=== PATIENT | male | born 1955 | race Caucasian/White ===

== ENCOUNTER 2020-07-12 11:52 | Emergency (ER) | payer MEDICARE, MEDICAID ==
[~2020-07-12] VITALS: Ht 177.8 cm; Wt 79.5 kg
[2020-07-12] MEDS ORDERED: LORazepam 2 MG/ML, 1ML IVPush ONE ×2 (12:30→16:00)
[2020-07-12] MEDS ORDERED: SODIUM CHLORIDE FLUSH 10ML SYR IVF ONE (12:30)
[2020-07-12] MEDS ORDERED: THIAMINE 100 MG in SODIUM CHLORIDE 0.9% 50 ML IVPB ONE (12:30)
[2020-07-12] MEDS ORDERED: PLEASE ENTER ALLERGIES MC SCH (12:30)
[2020-07-12] MEDS ORDERED: PLEASE ENTER HEIGHT AND WEIGHT MC SCH (12:30)
[2020-07-12] MEDS ORDERED: SODIUM CHLORIDE 0.9% 1,000ML IVBOLUS ONE (12:30)
[2020-07-12 12:39] LABS: MEAN CORPUSCULAR HEMOGLOBIN 39.7 pg (27.5-34.5); MEAN CORPUSCULAR HGB CONC 34.2 g/dL (33.2-36.2); MEAN CORPUSCULAR VOLUME 116.2 fL (81-97); MEAN PLATELET VOLUME 6.8 fL (7.4-10.4); PLATELET COUNT 245 x10^3/uL (130-400); RED BLOOD COUNT 3.77 x10^6/uL (4.38-5.82); RED CELL DISTRIBUTION WIDTH 18.1 % (9.4-14.8)
[2020-07-12] MEDS ORDERED: LORazepam 2 MG/ML, 1ML ONE (12:43)
[2020-07-12 12:44] LABS: ALANINE AMINOTRANSFERASE 81 U/L (12-78); ALBUMIN 4.1 g/dL (3.4-5.0); ANION GAP 8 mmol/L (5-15); CALCIUM 11.6 mg/dL (8.5-10.1); CHLORIDE 103 mmol/L (98-107); CREATININE 1.27 mg/dL (0.7-1.3)
[2020-07-12 12:51] LABS: ALKALINE PHOSPHATASE 82 U/L (45-117); BILIRUBIN,TOTAL 1.8 mg/dL (0.2-1.0); TOTAL PROTEIN 7.6 g/dL (6.4-8.2)
[2020-07-12 12:58] LABS: BASOPHILS # (AUTO) 0.03 x10^3/uL (0-0.1); BASOPHILS % (AUTO) 0 % (0-1); EOSINOPHILS # (AUTO) 0.03 x10^3/uL (0-0.4); EOSINOPHILS % (AUTO) 0 % (1-7); LYMPHOCYTES # (AUTO) 1.14 x10^3/uL (1-3.4); LYMPHOCYTES % (AUTO) 12 % (22-44); MD MORPH REVIEW ONLY; MONOCYTES % (AUTO) 6 % (2-9); NEUTROPHILS # (AUTO) 7.62 x10^3/uL (1.8-6.8); NEUTROPHILS % (AUTO) 81 % (42-75)
[2020-07-12 13:03] LABS: ANISOCYTOSIS 1+
[2020-07-12 13:04] LABS: <PLATELET ESTIMATE> ADEQUATE; <PLT MORPHOLOGY> NORMAL PLT MORPH
[2020-07-12] MEDS ORDERED: THIAMINE 100 MG/ML, 2ML ONE (14:03)
[2020-07-12 15:18] VITALS: BP 167/89
[2020-07-12 15:27] LABS: MICROSCOPIC INDICATED
[2020-07-12] MEDS ORDERED: LORazepam 1MG TABLET ONE (16:05)
[2020-07-12] MEDS ORDERED: LORazepam 1MG TABLET PO ONE (16:30)
== END 2020-07-12 16:22 | disposition home or self-care (01) ==
LOC: ED 15:13
DX: F10.239 Alcohol dependence with withdrawal, unspecified (principal); J02.9 Acute pharyngitis, unspecified; R05 Cough; R00.0 Tachycardia, unspecified; R06.89 Other abnormalities of breathing; Y90.9 Presence of alcohol in blood, level not specified
CPT/HCPCS: 36415; 71045; 80053; 80307; 81001; 85025; 93005; 96365; 96366; 96375; 99285; J2060; J3411; J7030

== ENCOUNTER 2020-07-21 13:54 | Emergency (ER) | payer MEDICARE, MEDICAID ==
[~2020-07-21] VITALS: Ht 180.3 cm; Wt 81.8 kg
--- NOTE | 2020-07-21 14:13 | NUR ---
BIB EMS FROM HOME. PT STATES HE HAS BEEN HAVING HALLUCINATIONS BOTH VISUAL AND AUDIBLE ABOUT EVENTS THAT HE KNOWS ARE NOT HAPPENING. PT IS CALM AND COOPERATIVE. STATES THAT HE WAS A HEAVY DRINKER BUT HAS HAD NO ALCOHOL IN 25 DAYS. DENIES SI OR HI AT THIS TIME.
--- NOTE | 2020-07-21 14:28 | NUR ---
BREAK RN: PT WAS SEEN HERE AND LEFT AMA 07/14/2020 FROM FLOOR. WAS ADMITTED FOR ETOH WITHDRAWAL, PRESUMPTIVE PNA, SEPSIS AND ARF. PT NOW [facility]ING ON [facility] MONITORS APPLIED. VSS.
--- NOTE | 2020-07-21 14:56 | NUR ---
DR HSU AT BEDSIDE. PT ASSESSMENT, POC DISCUSSED AND QUESTIONS ANSWERED.
--- NOTE | 2020-07-21 15:13 | NUR ---
PT AMBULATED TO BATHROOM UPRIGHT STEADY GAIT. URINE SAMPLE PROVIDED AND SENT TO LAB. RTD TO ROOM W/O INCIDENT. VSS, CALL LIGHT W/I REACH
[2020-07-21 15:36] LABS: MICROSCOPIC NOT IND
[2020-07-21 15:37] LABS: MEAN CORPUSCULAR HEMOGLOBIN 38.8 pg (27.5-34.5); MEAN CORPUSCULAR HGB CONC 33.5 g/dL (33.2-36.2); MEAN CORPUSCULAR VOLUME 115.7 fL (81-97); MEAN PLATELET VOLUME 7.8 fL (7.4-10.4); PLATELET COUNT 327 x10^3/uL (130-400); RED BLOOD COUNT 3.77 x10^6/uL (4.38-5.82); RED CELL DISTRIBUTION WIDTH 17.5 % (9.4-14.8)
[2020-07-21 15:39] LABS: BASOPHILS # (AUTO) 0.09 x10^3/uL (0-0.1); BASOPHILS % (AUTO) 1 % (0-1); EOSINOPHILS # (AUTO) 0.13 x10^3/uL (0-0.4); EOSINOPHILS % (AUTO) 1 % (1-7); LYMPHOCYTES # (AUTO) 1.65 x10^3/uL (1-3.4); LYMPHOCYTES % (AUTO) 18 % (22-44); MD MORPH REVIEW ONLY; MONOCYTES # (AUTO) 0.79 x10^3/uL (0.2-0.8); MONOCYTES % (AUTO) 9 % (2-9); NEUTROPHILS # (AUTO) 6.39 x10^3/uL (1.8-6.8); NEUTROPHILS % (AUTO) 71 % (42-75)
[2020-07-21 15:43] LABS: ALANINE AMINOTRANSFERASE 69 U/L (12-78); ALBUMIN 4.3 g/dL (3.4-5.0); ANION GAP 12 mmol/L (5-15); CALCIUM 9.9 mg/dL (8.5-10.1); CHLORIDE 97 mmol/L (98-107); CREATININE 1.09 mg/dL (0.7-1.3)
[2020-07-21 15:45] LABS: ALKALINE PHOSPHATASE 74 U/L (45-117); BILIRUBIN,TOTAL 0.7 mg/dL (0.2-1.0); SALICYLATE LEVEL 3.6 mg/dL (2.8-20.0)
[2020-07-21 15:49] LABS: AMPHETAMINE SCREEN, URINE Negative (Negative); BARBITURATE SCREEN, URINE Negative (Negative); CANNABINOID SCREEN, URINE Negative (Negative); COCAINE SCREEN, URINE Negative (Negative); METHADONE SCREEN, URINE Negative (Negative); OPIATE SCREEN, URINE Negative (Negative)
[2020-07-21 15:50] LABS: BENZODIAZEPINE SCREEN, URINE Positive (Negative)
[2020-07-21 15:52] LABS: <PLATELET ESTIMATE> ADEQUATE; <PLT MORPHOLOGY> NORMAL PLT MORPH; ANISOCYTOSIS 1+
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
[2020-07-21 17:53] VITALS: BP 147/69
[2020-07-21] MEDS ORDERED: NICOTINE 14MG/24 HR PATCH.TD24 ONE (17:56)
[2020-07-21] MEDS ORDERED: NICOTINE 14MG/24 HR PATCH.TD24 TD ONE (19:00)
== END 2020-07-22 06:07 | disposition other institution (70) ==
LOC: ED 16:37
DX: F13.151 Sedative, hypnotic or anxiolytic abuse with sedative, hypnotic or anxiolytic-induced psychotic disorder with hallucinations (principal); R44.1 Visual hallucinations; R07.89 Other chest pain
CPT/HCPCS: 36415; 71045; 80053; 80307; 81003; 85025; 99284